=== PATIENT | female | born 1960 | race Caucasian/White ===

== ENCOUNTER 2019-03-13 15:16 | Emergency (ER) | payer BC, OTHER ==
--- OUTSIDE RECORDS SUMMARY | 2019-03-13 15:32 | XMS REPORT | Summary of Care ---
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 [address] (Primary Dx) [place] [address] [place] [address] [phone] Allergies Active Allergy Reactions Severity Noted Date Comments Augmentin Hives 05/27/2007 Environmental Respiratory Reaction 02/17/2015 documented as of this encounter (statuses as of 03/13/2019) Medications Medication Sig Dispensed Refills Start End Status Date Date IBUPROFEN PO NEEDED 0 Active albuterol HFA Take 2 Puffs 1 Each 3 05/19/19 Active (VENTOLIN) 108 (90 by inhalation 18 Base) MCG/ACT EVERY FOUR Inhalation Aero Soln HOURS NEEDED (sob). tiotropium (SPIRIVA) 18 Take 1 INHL by 30 Cap 5 08/17/19 Active MCG Inhalation Cap inhalation 19 DAILY. fluticasone (FLONASE) [place] 2 Sprays 1 Bottle 5 08/17/19 Active 50 MCG/ACT Nasal in nose DAILY. 19 Suspension naproxen (NAPROSYN) 250 Take 250 mg by 0 Active MG Oral Tab mouth TWICE DAILY. atenolol (TENORMIN) 50 Take 1 Tab by 90 Tab 1 02/08/20 Active MG Oral TabIndications: mouth DAILY. 19 Secondary hypertension hydrochlorothiazide Take 1 Cap by 90 Cap 1 02/08/20 Active (HCTZ, ORETIC) 12.5 MG mouth DAILY. 19 Oral CapIndications: Secondary hypertension Omeprazole delayed rel Take 20 mg by 90 Cap 1 02/08/20 Active cap 20 MG Oral CAPSULE mouth DAILY. 19 DELAYED RELEASEIndications: Gastroesophageal reflux disease without esophagitis doxycycline Take 100 mg by 20 Tab 0 01/12/20 Discontinued (VIBRAMYCIN) 100 MG mouth TWICE 19 020 (Therapy Oral Tab DAILY. Completed) fluconazole (DIFLUCAN) Take 1 Tab by 2 Tab 0 01/12/20 Discontinued 150 MG Oral Tab mouth DAILY. 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 Jalloh, 2004. Tobacco use Overview: 1 pack per day Quit in past 8 days with varenicline in the past Began smoking age 13 Bronchial asthma documented as of this encounter (statuses as of 03/13/2019) Immunizations Name Administration Dates Next Due Adacel TdaP 02/15/2006 Influenza (IM) Preservative Free 11/26/2008 Influenza (IM) W/Pres 12/27/2016 PNEUMOCOCCAL POLYSACCHARIDE VACCINE 02/16/2017 Pneumococcal Conjugate(13 Valent) 11/04/2015 documented as of this encounter Social History Tobacco Use Types Packs/Day Years Used Date Current Every Day Smoker Cigarettes 1 33 Smokeless Tobacco: Never Used Tobacco Cessation: Ready to Quit: No; Counseling Given: Yes Alcohol Use Drinks/Week oz/Week Comments Yes 1 Standard drinks or equivalent 1.0 occa Sex Assigned at Date Recorded Not on file Job Start Date Occupation Industry Not on file Not on file Not on file Travel History Travel Start Travel End No recent travel history available. documented as of this encounter Last Filed Vital Signs Vital Sign Reading Time Taken Comments Blood Pressure 160/70 03/13/2019 1:39 PM EST Pulse 70 03/13/2019 1:39 PM EST Temperature - - Respiratory Rate - - Oxygen Saturation 97% 03/13/2019 1:39 PM EST Inhaled Oxygen Concentration - - Weight 90.7 kg (200 lb) 03/13/2019 1:39 PM EST Height 170.2 cm (5' 7") 03/13/2019 1:39 PM EST Body Mass Index 31.32 03/13/2019 1:39 PM EST documented in this encounter Patient Instructions Patient InstructionsRenetta Slater FNP - 03/13/2019 1:40 PM ESTTo ER now for evaluation documented in this encounter Progress Notes Renetta Slater FNP - 03/13/2019 1:40 PM EST PATIENT: Lorena Thapa : 1960 DATE OF SERVICE: 03/13/2019 CHIEF COMPLAINT: Chief Complaint Patient presents with Angioedema right leg-knee and ankle, painful x10 days Subjective HISTORY OF PRESENT ILLNESS: Lorena Thapa is a 58-y.o. female. HPI Swelling and pain in right knee and LE x 10 days - had knee injection last week. 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 Jalloh, 2004. Hypertension Family History Problem Relation Age of Onset Thyroid Father Heart Father GI Sister Heart Mother Respiratory Mother Alcohol/Drug Mother alcoholic Hypertension Mother Genitourinary () Brother born with one kidney Cancer Maternal Grandmother Leukemia Blood Disease Maternal Grandmother leukemia Diabetes Paternal Grandmother Cancer Paternal Grandmother Esophageal Arthritis Paternal Grandmother Diabetes Paternal Grandfather Thyroid Paternal Aunt Heart Failure Maternal Grandfather Genitourinary () Daughter "sponge kidney Seizures Son epilepsy Allergies No family history Asthma No family history Genetic No family history High Cholesterol No family history Psychiatry No family history Stroke No family history Current Outpatient Medications Medication Sig albuterol HFA (VENTOLIN) 108 (90 Base) MCG/ACT Inhalation Aero Soln Take 2 Puffs by inhalation EVERY FOUR HOURS NEEDED (sob). atenolol (TENORMIN) 50 MG Oral Tab Take 1 Tab by mouth DAILY. fluticasone (FLONASE) 50 MCG/ACT Nasal Suspension [place] 2 Sprays in nose DAILY. hydrochlorothiazide (HCTZ, ORETIC) 12.5 MG Oral Cap Take 1 Cap by mouth DAILY. IBUPROFEN PO NEEDED naproxen (NAPROSYN) 250 MG Oral Tab Take 250 mg by mouth TWICE DAILY. Omeprazole delayed rel cap 20 MG Oral CAPSULE DELAYED RELEASE Take 20 mg by mouth DAILY. tiotropium (SPIRIVA) 18 MCG Inhalation Cap Take 1 INHL by inhalation DAILY. No current facility-administered medications for this visit. Allergies Allergen Reactions Augmentin Hives Environmental Respiratory Reaction Social History Socioeconomic History Marital status: Single Spouse name: Not on file Number of children: Not on file Years of education: Not on file Highest education level: Not on file Occupational History Not on file Social Needs Financial resource strain: Not on file Food insecurity Worry: Not on file Inability: Not on file Transportation needs Medical: Not on file Non-medical: Not on file Tobacco Use Smoking status: Current Every Day Smoker Packs/day: 1.00 Years: 33.00 Pack years: 33.00 Types: Cigarettes Smokeless tobacco: Never Used Substance and Sexual Activity Alcohol use: Yes Alcohol/week: 1.0 standard drinks Types: 1 Standard drinks or equivalent per week Comment: occa Drug use: No Sexual activity: Yes Partners: Male Lifestyle Physical activity Days per week: Not on file Minutes per session: Not on file Stress: Not on file Relationships Social connections Talks on phone: Not on file Gets together: Not on file Attends church service: Not on file Active member of club or organization: Not on file Attends meetings of clubs or organizations: Not on file Relationship status: Not on file Intimate partner violence Fear of current or ex partner: Not on file Emotionally abused: Not on file Physically abused: Not on file Forced sexual activity: Not on file Other Topics Concern Not on file Social History Narrative Employment [employer]3] Marital Status single Children 3 Family history is noncontributory. REVIEW OF SYSTEMS: Review of Systems Constitutional: Positive for malaise/fatigue. Negative for fever. Cardiovascular: Positive for leg swelling. Negative for chest pain and palpitations. Musculoskeletal: Positive for myalgias. Skin: Negative for rash. Objective PHYSICAL EXAM: VITALS: BP (!) 160/70 | Pulse 70 | Ht 5' 7" (1.702 m) | Wt 200 lb (90.7 kg) | LMP 06/16/2008 |SpO2 97% | BMI 31.32 kg/m Body mass index is 31.32 kg /m. Physical Exam Vitals signs and nursing note reviewed. Constitutional: General: She is not in acute distress. Appearance: Normal appearance. HENT: Head: Normocephalic and atraumatic. Cardiovascular: Rate and Rhythm: Normal rate and regular rhythm. Comments: Redness and swelling right LE, unable to appreciate pedal or PT pulses Pulmonary: Effort: Pulmonary effort is normal. Musculoskeletal: Right lower leg: Edema present. Skin: General: Skin is warm and dry. Capillary Refill: Capillary refill takes less than 2 seconds. Findings: Erythema present. Neurological: Mental Status: She is alert and oriented to person, place, and time. Cranial Nerves: Cranial nerves are intact. Psychiatric: Behavior: Behavior is cooperative. ASSESSMENT / IMPRESSION: ICD-9-CM ICD-10-CM 1. Pain and swelling of right lower leg 729.5 M79.661 729.81 M79.89 Plan No vascular or US available at time of todays visit To ER now for evaluation - pt agrees Author: JASMIN Galicia 03/13/2019 13:55 documented in this encounter Plan of Treatment Health Maintenance Due Date Last Done Comments DTaP/Tdap/Td Vaccines (1 - 1969 Tdap) ZOSTER IMMUNIZATION SERIES 2008 (1 of 2) INFLUENZA VACCINE (#1) 2018 12/27/2016, 11/26/2008 DEPRESSION SCREENING 08/02/2019 08/01/2018 DIABETES SCREENING 08/17/2019 08/16/2018, 11/10/2017, 02/16/2017, Additional history exists LIPID DISORDER SCREENING 08/17/2019 08/16/2018, 05/24/2016, 11/04/2015, Additional history exists MAMMOGRAM (SCREENING) 08/23/2019 08/22/2018, 03/07/2017, 06/17/2015, Additional history exists LUNG CANCER SCREENING 09/18/2019 09/17/2018, 08/21/2017 PAP SMEAR 08/16/2021 08/16/2018, 11/04/2015, 11/04/2015, Additional history exists Colonoscopy 07/21/2023 07/20/2014, 07/13/2009, 07/13/2009, Additional history exists PNEUMOCOCCAL 0-64 YRS Completed 02/16/2017, 11/04/2015 HEPATITIS A IMMUNIZATION Aged Out No longer eligible SERIES based on patient's age to complete this topic HPV IMMUNIZATION SERIES Aged Out No longer eligible based on patient's age to complete this topic MENINGOCOCCAL VACCINE IMM Aged Out No longer eligible based on patient's age to complete this topic documented as of this encounter Goals Goal Patient Goal Associated Recent Patient-Stated? Author Type Problems Progress Blood Pressure Blood Pressure Hypertension 160/70 No Heidy, < 140/90 (03/13/2019 Reina, 1:39 PM EST) Note: Hypertension Care Plan Based on the patient's clinical history and according to JNC 8 guidelines target blood pressure goal is less than 140/90. Based on the patient's last blood pressure of BP: 144/82 mmHg the patient is at above goal. As your provider, it is important that I advise you regarding: your current medications and help you with any challenges you may face taking your medications as directed (ex. instructions, cost, side effects, and interactions). lifestyle changes: dietary sodium reduction and smoking cessation your clinical goals and how you can achieve success: diet improvements and smoking cessation medication management: adjusted medications as appropriate patient education/self-management tools provided: Yes To successfully manage my Hypertension I will: monitor my blood pressure daily, understanding that my goal is less than 140/ 90 per my healthcare provider's recommendation. I will schedule an appointment with my provider if consistent abnormal readings greater than 160/100. take medications every day as prescribed by my healthcare provider and if unable to take them I will discuss with my provider. monitor for symptoms of chest pain, chest tightness/pressure, irregular heartbeat, persistent dizziness, radiating arm pain, and neck or jaw pain. If any of these symptoms are noticed I will seek medical attention immediately by calling 911 exercise/walk 30 minutes 5 day(s) per week. If I experience chest pain, chest tightness, or shortness of breath, I will seek medical attention immediately. follow a diet rich in fruits, vegetables, and low-fat dairy products with reduced content of saturated & total fat. I will reduce my sodium intake daily. An example is the DASH diet. To obtain more information please refer to the DASH Eating Plan listed in Educational Resources. record my blood pressure results. Naye is safe and secure way for you to do this in your medical record online. try to obtain an ideal body weight. My recent weight was Weight: 196 lb ( 88.905 kg). limit alcohol consumption. For men two drinks per day and women one drink per day. if currently smoking, will discuss how to quit smoking with my healthcare provider and work towards quitting. Educational Resources: National Heart, Lung, & Blood Butler http://nhlbi.nih.gov/hbp/index.html The DASH Diet Eating Plan http://www.nhlbi.nih.gov/health/health-topics/ topics/dash/ Academy of Nutrition & DIetetics http://eatright.org National Smoking Cessation Site http://smokefree.gov Blood Pressure < Blood Pressure Hypertension 160/70 (03/13/2019 No Heidy, 140/90 1:39 PM EST) MD Reina Note: Hypertension Care Plan Based on the patient's clinical history and according to JNC 8 guidelines target blood pressure goal is less than 140/90. Based on the patient's last blood pressure of BP: 120/84 mmHg the patient is at at goal. As your provider, it is important that I advise you regarding: your current medications and help you with any challenges you may face taking your medications as directed (ex. instructions, cost, side effects, and interactions). Important lifestyle changes: exercise and smoking cessation your clinical goals and how you can achieve success: exercise plan and smoking cessation medication management: adjusted medications as appropriate patient education/self-management tools provided: Yes To successfully manage my Hypertension I will: monitor my blood pressure daily, understanding that my goal is less than 140/ 90 per my healthcare provider's recommendation. I will schedule an appointment with my provider if consistent abnormal readings greater than 160/100. take medications every day as prescribed by my healthcare provider and if unable to take them I will discuss with my provider. monitor for symptoms of chest pain, chest tightness/pressure, irregular heartbeat, persistent dizziness, radiating arm pain, and neck or jaw pain. If any of these symptoms are noticed I will seek medical attention immediately by calling 911 exercise/walk 30 minutes 5 day(s) per week. If I experience chest pain, chest tightness, or shortness of breath, I will seek medical attention immediately. follow a diet rich in fruits, vegetables, and low-fat dairy products with reduced content of saturated & total fat. I will reduce my sodium intake daily. An example is the DASH diet. To obtain more information please refer to the DASH Eating Plan listed in Educational Resources. record my blood pressure results. eGcollinsrie is safe and secure way for you to do this in your medical record online. limit alcohol consumption. For men two drinks per day and women one drink per day. if currently smoking, will discuss how to quit smoking with my healthcare provider and work towards quitting. Educational Resources: National Heart, Lung, & Blood Butler http://nhlbi.nih.gov/hbp/index.html The DASH Diet Eating Plan http://www.nhlbi.nih.gov/health/health-topics/ topics/dash/ Academy of Nutrition & DIetetics http://eatright.org National Smoking Cessation Site http://smokefree.gov Blood Pressure < Blood Pressure 160/70 (03/13/2019 No Reina Moody, 140/90 1:39 PM EST) Note: This is an individualized treatment (blood pressure) goal for Lorena Thapa: Displayed above (on the left) is your goal for blood pressure control. Your most recent blood pressure is also shown above, on the right. You should try to achieve blood pressures that are lower than your goal listed above (on the left). Smoking Cessation COPD No Reina Moody MD Note: This is an individualized treatment (COPD) goal for Lorena Thapa: Quit smoking immediately! Your provider has information and resources that may help you to quit. Lifestyle - Current Lifestyle Tobacco use On track (03/20/2014 No Heidy, Smoker 12:09 PM EST) MD Reina Note: Smoking Cessation Plan Discussed smoking cessation with patient. Patient readiness to quit:no Discussed smoking cessation plan according to AHRQ guidelines:counseled patient on the risks of tobacco use, advised patient to quit and offered support , discussed possible barriers (withdrawal symptoms , weight gain, fear of failure, etc.), advised regarding importance of setting quit date, discussed use of medication: Varenicline (Chantix), reason for relapse was lack of motivation, concerns about we ight gain and follow up visit in 2 weeks or as needed My Quit Plan: My quit date is set for N/A Notify my friends, family, and co-workers about decision to quit. Will ask for their support and understanding Remove tobacco products from my environment. I will ask people not to smoke around me or in my home. I will anticipate challenges at the beginning and will try not to be discouraged. To remember the benefits of quitting such as improved health, feeling better about myself, saving money, etc. Reducing stressors and avoiding triggers are essential keys to my success Finding ways to distract myself when I have the urge to smoke such as taking a walk, reading, playing a board game, putting together a puzzle, etc. Taking medications as my healthcare provider has advised to help alleviate the urge to smoke. If I am unable to take the medication, I will discuss further with my healthcare provider. Recognize reasons for relapse in my past attempts. What did and did not work for me Consider connecting with group, individual, or telephone counseling Lifestyle - Current Smoker Lifestyle Tobacco use No Reina Moody MD Note: Smoking Cessation Plan Discussed smoking cessation with patient. Patient readiness to quit:yes Discussed smoking cessation plan according to AHRQ guidelines:counseled patient on the risks of tobacco use and advised patient to quit and offered support My Quit Plan: My quit date is set for Notify my friends, family, and co-workers about decision to quit. Will ask for their support and understanding Remove tobacco products from my environment. I will ask people not to smoke around me or in my home. I will anticipate challenges at the beginning and will try not to be discouraged. To remember the benefits of quitting such as improved health, feeling better about myself, saving money, etc. Reducing stressors and avoiding triggers are essential keys to my success Finding ways to distract myself when I have the urge to smoke such as taking a walk, reading, playing a board game, putting together a puzzle, etc. Taking medications as my healthcare provider has advised to help alleviate the urge to smoke. If I am unable to take the medication, I will discuss further with my healthcare provider. Recognize reasons for relapse in my past attempts. What did and did not work for me Consider connecting with group, individual, or telephone counseling Weight loss vs. 18 mo Lifestyle 0 (03/13/2019 1:39 PM No Reina Moody MD max (lbs) >= 10 EST) Note: This is an individualized lifestyle goal for Lorena Thapa: Your body mass index (BMI) is more than 30. You should lose weight. A reasonable starting goal is to lose 10 pounds. Displayed above is how many pounds you have lost thus far towards your 10 pound weight loss goal. Keep immunizations current Lifestyle No Reina Moody MD Note: This is an individualized lifestyle goal for Lorena Thapa: Please be sure to keep up-to-date on recommended immunizations. For example, this would include a yearly influenza vaccine. Immunization status can be seen by looking at the Health Maintenance sections of your e[facility], Plan of Care, and any After Visit Summaries. Take all prescribed medications as Self-management No Reina Moody MD directed Note: This is an individualized self-management goal for Lorena Thapa: Please take all prescribed medications as directed. 1. Do not skip doses. If you cannot afford your medications, talk with your doctor. 2. Use a pill reminder system such as a pill box if needed. Your pharmacist can help you with this. 3. Contact your Pharmacy 5 days before your medication runs out. If you cannot take your medications for any reasons, talk with your doctor. 4. Please bring all of your medication bottles and inhalers (or a list of all your medications/inhalers) with you to every visit. Potential barriers to meeting all of your care plan goals will continue to be addressed on an ongoing basis. documented as of this encounter Results Not on filedocumented in this encounter Visit Diagnoses Diagnosis Pain and swelling of right lower leg documented in this encounter (Home) [place], [place] [phone] (Work) documented as of this encounter
--- OUTSIDE RECORDS SUMMARY | 2019-03-13 15:32 | XMS REPORT | Continuity of Care Document ---
:1960 External Reference #:[id number] Author Name Ashwin Wilburn M.D. (transmitted by agent of provider Darling Inman) Address [address] [place] [address] [place] [address] Care Team Providers Name Role Phone Reina Moody MD - Family Care Team Information Transmitter Tester Medicine Problems Active Problems Provider Date Disorder of shoulder Leonardo Figueredo M.D. Onset: 02/07/2013 Strain of rotator cuff capsule Leonardo Figueredo M.D. Onset: 02/07/2013 Social History Type Date Description Comments Sex Unknown ETOH Use Drinks 2 Alcoholic Beverages Per Week Tobacco Use Start: Unknown Patient was a smoker, current status is unknown Smoking Status Reviewed: 03/03/19 Patient was a smoker, current status is unknown Exercise Type/Frequency Does not exercise Allergies, Adverse Reactions, Alerts Active Allergies Reaction Severity Comments Date Augmentin 02/07/2013 Medications Active Medications SIG Qnty Indications Ordering Date Provider Atenolol 1 by mouth Unknown 50mg Tablets every day Hydrochlorothiazide 1 by mouth Unknown 12.5mg Capsules every day Omeprazole 1 by mouth Unknown 10mg Capsules DR every day Medications Administered in Office Medication SIG Qnty Indications Ordering Provider Date Synvisc Or Synvisc-One Injection 1 Ashwin Wilburn M.D. 09/22/2015 MG Injection Depomedrol 80MG Ashwin Wilburn M.D. 03/27/2011 Injection Immunizations Description No Information Available Vital Signs Date Vital Result Comment 03/03/2019 11:20am Height 67 inches 5'7" Weight 192.00 lb pt stated Heart Rate 66 /min BP Systolic 142 mmHg BP Diastolic 86 mmHg Respiratory Rate 12 /min Body Temperature 97.4 F Pain Level 5 BMI (Body Mass Index) 30.1 kg/m2 01/22/2019 8:38am Height 67 inches 5'7" Weight 196.50 lb Heart Rate 63 /min BP Systolic 162 mmHg BP Diastolic 88 mmHg Respiratory Rate 18 /min Body Temperature 97.3 F Pain Level 0 7-10 with activity O2 % BldC Oximetry 96 % BMI (Body Mass Index) 30.8 kg/m2 Results Description No Information Available Procedures Description No Information Available Medical Devices Description No Information Available Encounters Type Date Location Provider Dx Diagnosis Office Visit 01/22/2019 [facility] Ashwin Wilburn M.D. M17.11 Unilateral primary 8:00a at [place] osteoarthritis, right knee M16.12 Unilateral primary osteoarthritis, left hip Assessments Date Code Description Provider 01/22/2019 M17.11 Unilateral primary osteoarthritis, right knee Ashwin Wilburn M.D. 01/22/2019 M16.12 Unilateral primary osteoarthritis, left hip Ashwin Wilburn M.D. Plan of Treatment Future Appointment(s):03/05/2019 2:00 pm - Ashwin Wilburn M.D. at [facility] Functional Status Description No Information Available Mental Status Description No Information Available Referrals Description No Information Available
--- OUTSIDE RECORDS SUMMARY | 2019-03-13 15:32 | XMS REPORT | Continuity of Care Document ---
:1960 External Reference #:[id number] Author Name Ashwin Wilburn M.D. 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 Onset: 02/07/2013 Strain of rotator cuff capsule Leonardo Figueredo M.D. Onset: 02/07/2013 Social History Type Date Description Comments Sex Unknown ETOH Use Drinks 2 Alcoholic Beverages Per Week Tobacco Use Start: Unknown Patient was a smoker, current status is unknown Smoking Status Reviewed: 03/05/19 Patient was a smoker, current status is [...] Or Synvisc-One Injection 1 Ashwin Wilburn M.D. 03/03/2019 MG Injection Synvisc Or Synvisc-One Injection 1 Ashwin Wilburn M.D. 09/22/2015 MG Injection Depomedrol 80MG Ashwin Wilburn M.D. 03/27/2011 Injection Immunizations Description No Information Available Vital Signs Date Vital Result Comment 03/05/2019 2:25pm Height 67 inches 5'7" Heart Rate 70 /min BP Systolic 140 mmHg BP Diastolic 80 mmHg Respiratory Rate 20 /min Body Temperature 96.9 F Pain Level 7 03/03/2019 11:20am Height 67 inches 5'7" Weight 192.00 lb pt stated Heart Rate 66 /min BP Systolic 142 mmHg BP Diastolic 86 mmHg Respiratory Rate 12 /min Body Temperature 97.4 F Pain Level 5 BMI (Body Mass Index) 30.1 kg/m2 Results Description No Information Available Procedures Date Code Description Status 03/03/201944819 Inject/Drain Joint/Bursa Major W/O US Completed Medical Devices Description No Information Available Encounters Type Date Location Provider Dx Diagnosis Office Visit 01/22/2019 [facility] Ashwin Wilburn M.D. M17.11 Unilateral primary 8:00a at [place] osteoarthritis, right knee M16.12 Unilateral primary osteoarthritis, left hip Assessments Date Code Description Provider 03/05/2019 M16.12 Unilateral primary osteoarthritis, left hip Ashwin Wilburn M.D. 03/03/2019 M17.11 Unilateral primary osteoarthritis, right knee Ashwin Wilburn M.D. 01/22/2019 M17.11 Unilateral primary osteoarthritis, right knee Ashwin Wilburn M.D. 01/22/2019 M16.12 Unilateral primary osteoarthritis, left hip Ashwin Wilburn M.D. Plan of Treatment 03/05/2019 - Ashwin Wilburn M.D.M16.12 Unilateral primary osteoarthritis, left hipFollow up:Follow up: As needed I do not feel the left hip arthritis is related to the right knee work injury of February 1996. Functional Status Description No Information Available Mental Status Description No Information Available Referrals Description No Information Available
--- NOTE | 2019-03-13 15:56 | ED ---
Lower Extremity - HPI Summary HPI Summary: Patient is a 58 y/o F presenting to [facility] with complaints of RLE pain and swelling. She states that she had a Synvisc shot at her right knee last week to treat her arthritis. Patient also reports that the right knee feels warm. She claims that she was sent to [facility] to have r/o of blood clot. Home medications and allergies are reviewed. - History of Current Complaint Chief Complaint: EDExtremityLower Stated Complaint: POSS BLOOD CLOT PER PT Time Seen by Provider: 03/13/19 15:40 Hx Obtained From: Patient Onset of Pain: Prior to Arrival Onset/Duration: Still Present Severity Currently: Moderate Pain Intensity: 5 Pain Scale Used: 0-10 Numeric Location: Is Discrete @ - RLE Associated Signs And Symptoms: Positive: Swelling, Knee Pain, Other - warmth of right knee - Allergies/Home Medications Allergies/Adverse Reactions: Allergies Allergy/AdvReac Type Severity Reaction Status Date / Time amoxicillin [From Augmentin] Allergy Hives Verified 03/13/19 15:20 clavulanic acid Allergy Hives Verified 03/13/19 15:20 [From Augmentin] Home Medications: Home Medications Atenolol TAB* [Tenormin TAB* 50 MG] 50 mg PO DAILY 03/13/19 [History Confirmed 03/13/19] Hydrochlorothiazide TAB* [Hydrodiuril TAB*] 12.5 mg PO DAILY 03/13/19 [History Confirmed 03/13/19] Omeprazole CAP (NF) [Prilosec CAP* 20 MG] 20 mg PO DAILY 03/13/19 [History Confirmed 03/13/19] PMH/Surg Hx/FS Hx/Imm Hx Musculoskeletal History: Reports: Hx Arthritis Sensory History: Denies: Hx Legally Blind, Hx Deafness Opthamlomology History: Denies: Hx Legally Blind EENT History: Denies: Hx Deafness Infectious Disease History: No Infectious Disease History: Denies: Traveled Outside the [place] in Last 30 Days - Family History Known Family History: Negative: Cardiac Disease - Social History Alcohol Use: Occasionally Substance Use Type: Reports: None Smoking Status (MU): Never Smoked Tobacco Review of Systems Musculoskeletal: Other - POSITIVE - RLE PAIN Positive: Edema - RLE Skin: Other - POSITIVE - RLE WARMTH All Other Systems Reviewed And Are Negative: Yes Physical Exam - Summary Physical Exam Summary: VITAL SIGNS: Reviewed. GENERAL: Patient is a well-developed and nourished female who is lying comfortable in the stretcher. Patient is not in any acute respiratory distress. HEAD AND FACE: No signs of trauma. No ecchymosis, hematomas or skull depressions. No sinus tenderness. EYES: PERRLA, EOMI x 2, No injected conjunctiva, no nystagmus. EARS: Hearing grossly intact. Ear canals and tympanic membranes are within normal limits. MOUTH: Oropharynx within normal limits. NECK: Supple, trachea is midline, no adenopathy, no JVD, no carotid bruit, no c- spine tenderness, neck with full ROM. CHEST: Symmetric, no tenderness at palpation. LUNGS: Clear to auscultation bilaterally. No wheezing or crackles. CVS: Regular rate and rhythm, S1 and S2 present, no murmurs or gallops appreciated. ABDOMEN: Soft, non-tender. No signs of distention. No rebound, no guarding, and no masses palpated. Bowel sounds are normal. EXTREMITIES: FROM in all major joints, no edema, no cyanosis or clubbing. NEURO: Alert and oriented x 3. No acute neurological deficits. Speech is normal and follows commands. SKIN: Dry and warm. Triage Information Reviewed: Yes Vital Signs On Initial Exam: Initial Vitals Temp Pulse Resp BP Pulse Ox 97.5 F 86 15 181/89 99 03/13/19 15:17 03/13/19 15:17 03/13/19 15:17 03/13/19 15:17 03/13/19 15:17 Vital Signs Reviewed: Yes Procedures - Sedation Patient Received Moderate/Deep Sedation with Procedure: No Diagnostics - Vital Signs Vital Signs Temp Pulse Resp BP Pulse Ox 03/13/19 15:17 97.5 F 86 15 181/89 99 - Laboratory Result Diagrams: 03/13/19 17:20 03/13/19 17:20 Lab Statement: Any lab studies that have been ordered have been reviewed, and results considered in the medical decision making process. - Ultrasound RLE VENOUS DOPPLER STUDY Ultrasound Interpretation Completed By: Radiologist Summary of Ultrasound Findings: IMPRESSION: NO RIGHT LOWER EXTREMITY DEEP VEIN THROMBOSIS. THIS REPORT WAS REVIEWED BY ED PHYSICIAN. Lower Extremity Course/Dx - Course Assessment/Plan: Patient is a 58 y/o F presenting to [facility] with complaints of RLE pain and swelling. She states that she had a Synvisc shot at her right knee last week to treat her arthritis. Patient also reports that the right knee feels warm. She claims that she was sent to [facility] to have r/o of blood clot. Home medications and allergies are reviewed. Blood work without a significant abnormality except for a CRP of 17. Distal signs of infection. Right lower extremity ultrasound impression: No right lower extremity DVT. Patient took ibuprofen and pain resolved. She reports no other complaints. The patient is ambulatory with minimal pain. Therefore she will be discharged home with follow -up with primary care physician. The patient is hemodynamically stable alert oriented 3. She was given instructions to return to the emergency department if the pain increases, if there is any redness or increase in temperature to the right knee. The patient understands and agrees. - Diagnoses Differential Diagnosis/HQI/PQRI: Positive: Bursitis, Cellulitis, Contusion, DVT Provider Diagnoses: Knee pain Discharge ED - Sign-Out/Discharge Documenting (check all that apply): Patient Departure - discharge - Discharge Plan Condition: Stable Disposition: HOME Patient Education Materials: Knee Pain (ED) Forms: *Work Release Referrals: Reina Moody MD [Primary Care Provider] - 3 Days Additional Instructions: PLEASE RETURN TO ED FOR ANY NEW OR WORSENING SYMPTOMS. PLEASE FOLLOW UP WITH YOUR PRIMARY CARE PHYSICIAN WITHIN THREE DAYS. - Billing Disposition and Condition Condition: STABLE Disposition: Home - Attestation Statements Document Initiated by Alysha: Yes Documenting Scribe: JEFF KILGORE Provider For Whom Alysha is Documenting (Include Credential): DEANGELO PACHECO MD Scribe Attestation: JEFF Hayes, scribed for DEANGELO PACHECO MD on 03/13/19 at 2136. Scribe Documentation Reviewed: Yes Provider Attestation: The documentation as recorded by the JEFF cochran accurately reflects the service I personally performed and the decisions made by , DEANGELO PACHECO MD Status of Scribe Document: Viewed
[2019-03-13 17:31] LABS: ABS Eosinophils 0.2 10^3/ul (0-0.6); ABS Lymphocytes 1.5 10^3/ul (1.0-4.8); ABS Monocytes 0.5 10^3/ul (0-0.8); ABS Neutrophils 3.1 10^3/ul (1.5-7.7); Eosinophil % 4.5 %; Hematocrit 38 % (35-47); Hemoglobin 13.3 g/dL (12.0-16.0); Lymphocyte % 27.1 %; Mean Corpuscular HGB Conc 35 g/dL (31-36); Mean Corpuscular Hemoglobin 31 pg (27-31); Mean Corpuscular Volume 87 fL (80-97); Mean Platelet Volume 8.6 fL (7.4-10.4); Nucleated Red Blood Cells % 0.1; Platelet Count 237 10^3/uL (150-450); Red Blood Count 4.33 10^6 /uL (3.70-4.87); Red Cell Distribution Width 13 % (10-15); White Blood Count 5.4 10^3/uL (3.5-10.8)
[2019-03-13 17:48] LABS: Albumin 3.9 g/dL (3.2-5.2); Albumin/Globulin Ratio 1.4 (1-3); BUN/Creatinine Ratio 24.5 (8-20); C Reactive Protein 17.17 mg/L (<8.01); Calcium 8.9 mg/dL (8.6-10.3); EGFR African American 142.4 (>60); EGFR Non-African American 117.7 (>60); Globulin 2.7 g/dL (2-4); Potassium 3.6 mmol/L (3.5-5.0); Total Bilirubin 0.3 mg/dL (0.2-1.0); Total Protein 6.6 g/dL (6.4-8.9); Uric Acid 2.9 mg/dL (2.3-6.6)
[2019-03-13 20:46] VITALS: BP 165/87
== END 2019-03-13 20:44 | disposition home or self-care (01) ==
LOC: ED 15:16
DX: M25.561 Pain in right knee (principal); Z79.899 Other long term (current) drug therapy; Z88.0 Allergy status to penicillin; Z88.1 Allergy status to other antibiotic agents
CPT/HCPCS: 36415; 80053; 83605; 84550; 85025; 86140; 99282

== ENCOUNTER 2019-09-08 07:24 | Observation (INO) ==
[~2019-09-08 07:24] MED LIST: Buffered Lidocaine 1% SYRIN 1 ml INTRADERM ONE; Lactated Ringers 1000 ml BAG 1,000 ML IV SCH
[2019-09-08] MEDS ORDERED: Clindamycin 900 MG/D5W BAG 900 MG/50 ML BAG IVPB ONE (07:27)
[2019-09-08] MEDS ORDERED: Sterile Water for Inj 10 ML ONE ×2 (08:47→12:15)
[2019-09-08] MEDS ORDERED: Midazolam 5 mg/5 ml VIAL 1 mg/ml 5 ml VIAL (5 mg) ONE (08:47)
[2019-09-08] MEDS ORDERED: EPHEDrine (Pressors) 50 MG/ML VIAL ONE ×2 (08:47→12:15)
[2019-09-08] MEDS ORDERED: Lidocaine 2% PF 5 ML VIAL ONE ×2 (08:47→12:39)
[2019-09-08] MEDS ORDERED: Bupivacaine 0.5% SDV PF 30ML VIAL ONE (10:36)
[2019-09-08] MEDS ORDERED: Metoclopramide 5 MG/ML VIAL (10 mg) ONE (10:36)
[2019-09-08] MEDS ORDERED: Ondansetron 4 mg VIAL 2 MG/ML 2 ml VIAL ONE (10:36)
[2019-09-08] MEDS ORDERED: Dexamethasone IV 4 MG/ML VIAL 1 ml VIAL ONE (10:36)
[2019-09-08] MEDS ORDERED: Acetaminophen IV 1 GM/100ML 100 ML ONE (10:37)
[2019-09-08] MEDS ORDERED: Phenylephrine 40 mcg/mL 10mL (400mcg) SYRINGE ONE (12:39)
[2019-09-08] MEDS ORDERED: Lactulose 30 ml UDC PO PRN (13:47)
[2019-09-08] MEDS ORDERED: Ondansetron 4 mg VIAL 2 MG/ML 2 ml VIAL IV PRN (13:47)
[2019-09-08] MEDS ORDERED: Morphine 2 MG/ML SYRINGE IV PRN (13:47)
[2019-09-08] MEDS ORDERED: diPHENhydraMINE IV 50 MG/ML 1 ml VIAL (BENADRYL) IV PRN (13:47)
[2019-09-08] MEDS ORDERED: diPHENhydraMINE 25 mg TAB PO PRN (13:47)
[2019-09-08] MEDS ORDERED: oxyCODONE/Acetamin 5/325 mg TAB PO PRN (13:47)
[2019-09-08] MEDS ORDERED: Ondansetron ODT 4 mg TAB 4 MG TAB PO PRN (13:47)
[2019-09-08] MEDS ORDERED: Magnesium Hydroxide LIQ 30 ML UDC PO PRN (13:47)
[2019-09-08] MEDS ORDERED: oxyCODONE/Acetamin 5/325 mg TAB ONE (14:19)
[2019-09-08] MEDS: oxyCODONE/Acetamin 5/325 mg TAB PO PRN ×3 (14:21→22:48)
[2019-09-08] MEDS: Lactated Ringers 1000 ml BAG 1,000 ML IV SCH (15:21)
[2019-09-08] MEDS ORDERED: Albuterol HFA INHALER 8 gm MDI INH PRN (15:45)
[2019-09-08] MEDS: Magnesium Hydroxide LIQ 30 ML UDC PO SCH (20:11)
[2019-09-08] MEDS: Clindamycin 600 MG/D5W BAG 600 MG/50 ML BAG IV SCH (20:12)
[2019-09-09] MEDS ORDERED: Polyethylene Glycol 3350 17 GM PACKET PO PRN (00:01)
[2019-09-09] MEDS: Lactated Ringers 1000 ml BAG 1,000 ML IV SCH (01:17)
[2019-09-09] MEDS: Clindamycin 600 MG/D5W BAG 600 MG/50 ML BAG IV SCH ×2 (03:25→11:32)
[2019-09-09] MEDS: oxyCODONE/Acetamin 5/325 mg TAB PO PRN ×3 (04:01→13:02)
[2019-09-09 08:24] LABS: Hematocrit 31 % (35-47); Hemoglobin 10.8 g/dL (12.0-16.0); Mean Platelet Volume 9.1 fL (7.4-10.4); Platelet Count 164 10^3/uL (150-450)
[2019-09-09 08:34] LABS: BUN/Creatinine Ratio 18.9 (8-20); Calcium 7.9 mg/dL (8.6-10.3); EGFR African American 142.4 (>60); EGFR Non-African American 117.7 (>60); Potassium 4.2 mmol/L (3.5-5.0)
[2019-09-09] MEDS: Magnesium Hydroxide LIQ 30 ML UDC PO SCH (08:36)
[2019-09-09] MEDS ORDERED: Vitamin THERAPEUTIC TAB PO SCH (09:00)
[2019-09-09 11:06] VITALS: BP 115/56
== END 2019-09-09 14:40 | disposition home or self-care (01) ==
LOC: AA 07:24 → INTOOBSV 07:24 → SSU 15:16
PROVIDERS: ADMIT Orthopaedic Surgery Adult Reconstructive Orthopaedic Surgery; ATTEND Orthopaedic Surgery Adult Reconstructive Orthopaedic Surgery